=== PATIENT | male | born 1940 | race Caucasian/White ===

== ENCOUNTER → 2017-06-27 | Outpatient (CLI) | payer MEDICARE, BC ==
[~2017-06-27] MED LIST: AMLO-131 PO; ASPI1TAB57 PO; BYST10TA2 PO; CENTTAB20 PO; ECASA81 PO; HYDR-3580 PO; MULT-65 PO; OXYC1SOL5 PO; PRAV20 PO; PRAV20TA2 PO; RIVA10 PO; VITA10002 PO; [UNRECOGNIZED DRUG - CODE] PO
[2017-06-27 08:30] LABS: HEMATOCRIT 44.2 % (39.0-51.0); MEAN CELL VOLUME 98.1 FL (80.0-100.0); MEAN CORPUSCULAR HEMOGLOBIN 33.8 PG (27.0-34.0); MEAN CORPUSCULAR HGB CONC 34.5 % (32.0-36.0); PLATELET COUNT 379 TH/MM3 (150-450); RED CELL DISTRIBUTION WIDTH 13.9 % (11.6-17.2); REVIEW FLAG FINAL; WHITE BLOOD COUNT 12.8 TH/MM3 (4.0-11.0)
[2017-06-27 08:40] LABS: APTT (PATIENT) 25.3 SEC (24.3-30.1)
[2017-06-27 08:58] LABS: BICARBONATE 24.3 MEQ/L (21.0-32.0); POTASSIUM 3.9 MEQ/L (3.5-5.1)
[2017-06-27 09:28] LABS: BACTERIA, URINE OCC /hpf; BLOOD, URINE NEG (NEG); COMMENT (UR) CULT NOT INDICATED; CULTURE IF INDICATED CULT NOT INDICATED; GLUCOSE,URINE NEG (NEG); KETONE, URINE TRACE mg/dL (NEG); MUCUS URINE MANY /lpf (OCC); NITRITE,URINE NEG (NEG); SQUAMOUS EPITHELIAL CELL URINE 4 /hpf (0-5); TRANSITIONAL EPI CELLS, URINE 1 /hpf; URINE COLOR DARK-YELLOW (YELLW/STRAW)
--- NOTE | 2017-06-28 13:27 | EKG ---
Date Performed: 06/27/2017 Time Performed: 08:26:19 PTAGE: 76 years EKG: Reversed limb leads Precordial leads show Right Bundle Branch Block pattern Recommend repea t tracing with corrected limb lead placement PREVIOUS TRACING also showed right bundle branch block pattern, but the previous tracing showed the correct limb lead placement. PREVIOUS TRACIN12/30/2014 09.13 DOCTOR: Jose Beaulieu Interpretating Date/Time 06/28/2017 13:26:18
== END ==
LOC: CPRE 07:57
PROVIDERS: ATTEND Orthopaedic Surgery
DX: Z01.812 Encounter for preprocedural laboratory examination (principal); Z01.810 Encounter for preprocedural cardiovascular examination; M16.11 Unilateral primary osteoarthritis, right hip; M79.609 Pain in unspecified limb; I10 Essential (primary) hypertension; I45.10 Unspecified right bundle-branch block
CPT/HCPCS: 36415; 80048; 81001; 85027; 85610; 85730; 93005

== ENCOUNTER 2017-07-15 07:21 | Inpatient (IN) | payer MEDICARE, BC ==
[~2017-07-15] VITALS: Ht 175.3 cm; Wt 78.9 kg
[~2017-07-15 07:21] MED LIST changes: -CENTTAB20 PO; -ECASA81 PO; -HYDR-3580 PO; -OXYC1SOL5 PO; -PRAV20 PO; -RIVA10 PO; -[UNRECOGNIZED DRUG - CODE] PO
[2017-07-15] MEDS ORDERED: METOPROLOL TARTRATE 25 MG TAB PO PRN (08:00)
[2017-07-15] MEDS ORDERED: TRANEXAMIC ACID INJ 807 MG in SODIUM CHLORIDE 0.9% INJ 100 ML IV SCH ×2 (08:00→11:00)
[2017-07-15] MEDS ORDERED: CHLORHEXIDINE GLUCONATE 2 % 1 PACK (2 CLOTHS) TOPICAL PRN (08:00)
[2017-07-15] MEDS ORDERED: CHLORHEXIDINE GLUCONATE 4% SOLN 120 ML BTL TOPICAL SCH (08:00)
[2017-07-15] MEDS ORDERED: EXPAREL PERI-ARTICULAR INJECTION (TOTAL VOL. 60 ML) P-ARTICULR SCH ×2 (08:00)
[2017-07-15] MEDS ORDERED: POVIDONE IODINE 5% (ANTISEPSIS KIT) 4 APPLICATIONS EACH NARE PRN (08:00)
[2017-07-15] MEDS ORDERED: LACTATED RINGER'S 1000 ML IV PRN (08:00)
[2017-07-15] MEDS ORDERED: SODIUM CHLORID 0.9% 500 ML IV PRN (08:00)
[2017-07-15] MEDS ORDERED: ceFAZolin 2 GM PREMIX 50 ML IV SCH (08:00)
[2017-07-15] MEDS ORDERED: GENTAMICIN SULFATE 80 MG/2 ML VIAL ONE (09:11)
[2017-07-15] MEDS ORDERED: ACETAMINOPHEN/HYDROcodone 325 MG/7.5 MG TAB PO PRN (09:30)
[2017-07-15] MEDS ORDERED: TRANEXAMIC ACID INJ 0 MG in SODIUM CHLORIDE 0.9% INJ 100 ML IV SCH (09:30)
[2017-07-15] MEDS ORDERED: ONDANSETRON HCL 4 MG/2 ML VIAL IVP PRN (09:30)
[2017-07-15] MEDS ORDERED: MORPHINE SULFATE 2 MG/ML INJ IV PUSH PRN (09:30)
[2017-07-15] MEDS ORDERED: BISACODYL 10 MG SUPP RECTAL PRN (09:30)
[2017-07-15] MEDS ORDERED: Post-op Orders (for Pharmacy) XX ONE (09:30)
[2017-07-15] MEDS ORDERED: ECASA81 PO (09:32)
[2017-07-15] MEDS ORDERED: FAMOTIDINE 20 MG/2 ML VIAL ONE (09:53)
[2017-07-15] MEDS ORDERED: ACETAMINOPHEN 1000 MG/100 ML 100 ML IV ONE (09:54)
[2017-07-15] MEDS ORDERED: PROPOFOL 500 MG/50 ML INJ 50 ML ONE (09:54)
[2017-07-15] MEDS ORDERED: PHENYLEPH/NS 1000 MCG/10 ML SYR IV ONE (12:00)
[2017-07-15] MEDS ORDERED: ONDANSETRON HCL 4 MG/2 ML VIAL IV ONE (12:00)
[2017-07-15] MEDS ORDERED: PROPOFOL 200 MG/20 ML AMP IV ONE (12:00)
[2017-07-15] MEDS ORDERED: ePHEDrine/NS 25 MG/5 ML SYRINGE IV ONE (12:00)
[2017-07-15] MEDS ORDERED: LACTATED RINGER'S 1000 ML INJ 1,000 ML IV ONE (12:00)
[2017-07-15] MEDS: KETOROLAC TROMETHAMINE 30 MG/ML (IVP) VIAL IVP SCH ×3 (12:00→23:00)
[2017-07-15] MEDS ORDERED: DEXAMETHASONE SOD PHOS 4 MG/ML VIAL IV ONE (12:00)
[2017-07-15] MEDS ORDERED: DO NOT ADM ANY ANTICOAGULANT DRUGS PRN (12:14)
--- NOTE | 2017-07-15 12:15 | HHI.PR ---
Immediate Post Op Note Procedure Date: Jul 15, 2017 Pre Op Diagnosis: (1) Primary osteoarthritis of right hip Post Op Diagnosis: (1) Primary osteoarthritis of right hip Surgeon: Surendra Sanchez M.D. Laborer [employer] House(s): KRANTHI Allen Procedure: Right total hip arthroplasty using [place] prosthesis Findings: Severe osteoarthritis, right hip Complications: None Specimen(s) removed: None Estimated blood loss: 50 mL Anesthesia: Spinal, Local (bupivacaine liposomal) Drains: None IVF Patient to: PACU Patient Condition: Good Implant/Devices: SEE IMPLANT LOG (if applicable) Date/Time of Procedure: SEE SURGICAL CARE RECORD Cori Sanchez MD (Charles) Jul 15, 2017 12:15
[2017-07-15] MEDS: LACTATED RINGER'S 1000 ML INJ 1,000 ML IV SCH ×2 (12:21→22:30)
--- NOTE | 2017-07-15 12:49 | PD.OP ---
Operative Report Date of Surgery: Jul 15, 2017 Preoperative Diagnosis: (1) Primary osteoarthritis of right hip Postoperative Diagnosis: (1) Primary osteoarthritis of right hip Procedure: Right total hip arthroplasty using [place] prosthesis Anesthesia: Spinal supplemental local Surgeon: Surendra Sanchez M.D. Predatory Game Hunter(s): KRANTHI Allen Operation and Findings: Indications and Findings: This 76-year-old man has had progressively worsening hip pain over the past several months. He has limited ambulation because of his pain. He has stiffness in the hip. He has had significant worsening to the point that he is using a walker to ambulate. Treatment has included nonsteroidal anti-inflammatory agents, analgesics, ambulatory aids and exercise. Physical playing findings show limited range of motion of the hip with tenderness on motion and a significantly antalgic gait. X-rays show severe osteoarthritis in the hip with loss of articular cartilage to bone on bone with eburnation and large osteophytes. Operative findings showed severe osteoarthritis in the right hip with loss of articular cartilage to bone on bone, a deformed femoral head, large osteophytes and eburnation. The prosthesis used was a [place] prosthesis. The acetabulum was a Tritanium cluster cup size 56 mm outer diameter. A single dome screw was used. The liner was a 36 mm inner diameter, 0 liner of X3 polyethylene. The femoral component was an Accolade 2 size 6 x 127. The femoral head was a Biolox delta 36 mm outer diameter with a +0 neck length. The patient was brought to the clean air operating suite and a spinal anesthetic was administered. The patient was then positioned into a lateral position with the right hip up on a Ribbit lateral positioner. The hip and lower extremity were then prepped with alcohol, Hibiclens and ChloraPrep and draped in the usual manner with the hip draped free. Patient received prophylactic antibiotics preoperatively. The patient also received tranexamic acid preoperatively. An appropriate timeout procedure was carried out. An incision was then made from the midportion of the greater trochanter proximally and posteriorly paralleling the fibers of the gluteus helena. The incision was deepened through subcutaneous tissues down to the fascia leno and gluteus fascia. The gluteus fascia was then split longitudinally in line with its fibers up to the upper portion of the fascia leno. With wound towels in place, the Charnley retractor was inserted. The sciatic nerve was identified and protected throughout the procedure. Dissection was then carried down to the interval between the gluteus minimus and the piriformis. A retractor was inserted. The piriformis and obturator conjoined tendon was released from the greater trochanter and reflected off the capsule. A capsulotomy was made longitudinally along the femoral neck to the base of the femoral neck and then curved distally along the posterior aspect of the greater trochanter. The hip was then internally rotated. Further release of the external rotators was carried out exposing the hip. The hip was then dislocated. The femoral neck was transected at the appropriate level using the oscillating saw placement of appropriate retractors. The femoral head was then removed. Preparation of the femur was initiated with a box osteotome followed by a curet to identify the medullary canal. Broaching was then initiated with the size 0 broach and went and 1 size increments up to size 6. The broach handle was removed. The femoral neck was then trimmed with a calcar planar. Attention was then directed to the acetabulum. Soft tissues were debrided from the acetabulum. Retractors were placed about the acetabulum. Reaming was then initiated with the 47 millimeter reamer and went in 1 mm increments up to the 56 millimeter diameter reamer. A trial reduction with the 56 millimeter trial prosthesis was carried out. When this was deemed to be appropriate, the trial prosthesis was removed. The acetabulum was then irrigated and cleaned. The actual prosthesis as noted above was then impacted into place and seated appropriately. Drill holes were then made and sounded. Appropriate sized screws were then inserted to stabilize the acetabulum further. The liner as noted above was then inserted into the acetabular shell and impacted into place. Osteophytes were trimmed from the acetabulum. Local anesthetic was then administered throughout the area of the acetabulum and anterior aspect of the femur. The trial neck was then placed on the broach for the above-noted prosthesis. The femoral head trial was placed onto the femoral neck with the external diameter of the head being 36 millimeters and the neck length being a + 0 millimeters. A trial reduction was then carried out. The stability, leg length and motion were excellent. There was no pistoning. The trial prosthesis was removed. The broach was removed. The femoral component was then impacted into the medullary canal of the femur after irrigation and suctioning. When this was appropriately seated a trial reduction was again carried out with the trial prosthesis. Again, there was no pistoning. The leg length was appropriate. The stability and motion were excellent. The trial prosthesis was then removed. After cleaning and drying the trunion of the femoral component, the above-noted femoral head was impacted onto the trunnion. The hip was then reduced. The stability and mobility were again checked along with leg lengths as noted above. The hip was then positioned appropriately and closure commenced after the remainder of the local anesthetic was injected throughout the hip. The external rotators and capsule were then repaired with #1 Vicryl interrupted transosseous sutures with a Krakw technique to reattach the external rotators and capsule to the posterior aspect of the greater trochanter. The capsule itself on the superior aspect was closed with #1 Vicryl interrupted [id number] sutures. The sciatic nerve was again inspected. The fascia leno and gluteus fascia were then repaired with #1 Vicryl interrupted [id number] sutures. The subcutaneous tissues were closed with 2-0 Vicryl interrupted simple sutures with buried knots. The skin was closed with a continuous subcuticular closure of 4-0 Monocryl. The wound was then approximated with Steri-Strips. A silver impregnated dressing was applied to the hip. A knee immobilizer was applied to the leg. The patient was then transferred from the operating room to the recovery room in satisfactory condition having tolerated the procedure well. Counts are correct. Specimens: None. Estimated blood loss: 25 mL Cori Sanchez MD (Charles) Jul 15, 2017 12:49
--- NOTE | 2017-07-15 12:52 | HHI.FF ---
Face to Face Verification Diagnosis: (1) Status post total hip replacement, right Physical Therapy Gait training Hip: Total hip, Protocol: Right, Posterior hip precautions, Progress to weight bearing Canvas Knee Splint: When in bed & 2 pillows btw thighs Right LE Weight Bearing: WB as tolerated Right LE Range of Motion: Active ROM Nursing Nursing: Dressing changes (to start on postoperative day 7.) Dressing Changes: Daily dressing change, Coverderm/Primapore Additional Instructions Removed Steri-Strips on postoperative day 14. I have seen patient Benjamin Chavez on 07/15/17. My clinical findings support the need for the requested home health care services because: Ltd mobility - disease progression Limited ability to care for self High risk of falls I certify that my clinical findings support that this patient is homebound because: Post-op weakness Unsteady gait/balance Unsafe to leave home unassisted Cori Sanchez MD (Charles) Jul 15, 2017 12:52
--- NOTE | 2017-07-15 13:35 | PD.CONS ---
[facility] Requested By Sendy Babb Reason for Consult Postoperative medical management of hypertension Primary Care Physician Non-Staff Diagnoses: History of Present Illness A very pleasant 76-year-old gentleman who has a history of hypertension and tobaccoism. He is normally healthy although he has been using a walker recently due to joint pain. He is now seen postoperatively in the PACU. He has no complaints. He is status post spinal anesthesia. No recent changes in his medications and he does see his primary care doctor in [place] regularly. She is now seen postoperatively with a blood pressure of 137/71, heart rate. He normally takes amlodipine and diastolic. Review of Systems Constitutional: DENIES: Diaphoretic episodes, Fatigue, Fever, Weight gain, Weight loss, Chills, Dizziness, Change in appetite, Night Sweats Endocrine: DENIES: Heat/cold intolerance, Polydipsia, Polyuria, Polyphagia Eyes: DENIES: Blurred vision, Diplopia, Eye inflammation, Eye pain, Vision loss , Photosensitivity, Double Vision Ears, nose, mouth, throat: DENIES: Tinnitus, Hearing loss, Vertigo, Nasal discharge, Oral lesions, Throat pain, Hoarseness, Ear Pain, Running Nose, Epistaxis, Sinus Pain, Toothache, Odynophagia Respiratory: DENIES: Apneas, Cough, Snoring, Wheezing, Hemoptysis, Sputum production, Shortness of breath Cardiovascular: DENIES: Chest pain, Palpitations, Syncope, Dyspnea on Exertion , PND, Lower Extremity Edema, Orthopnea, Claudication Gastrointestinal: DENIES: Abdominal pain, Black stools, Bloody stools, Constipation, Diarrhea, Nausea, Vomiting, Difficulty Swallowing, Anorexia Genitourinary: DENIES: Penile Discharge Musculoskeletal: COMPLAINS OF: Joint pain Integumentary: DENIES: Abnormal pigmentation, Nail changes, Pruritus, Rash Hematologic/lymphatic: DENIES: Bruising, Lymphadenopathy Immunologic/allergic: DENIES: Eczema, Urticaria Neurologic: COMPLAINS OF: Abnormal gait (secondary to arthritis), DENIES: Headache, Localized weakness, Paresthesias, Seizures, Speech Problems, Tremor, Poor Balance Except as stated in HPI: all other systems reviewed are Neg Past Family Social History Allergies: Coded Allergies: No Known Allergies (Verified Allergy, Unknown, 07/15/17) Past Medical History hypertension Hyperlipidemia Past Surgical History Right total knee replacement Reported Medications Reviewed in the EMR Active Ordered Medications Reviewed in the EMR Family History mother had hypertension Social History Beer daily, tobacco 1 pack a day Physical Exam Vital Signs Vital Signs Date Time Temp Pulse Resp B/P (MAP) Pulse Ox O2 Delivery O2 Flow Rate FiO2 07/15/17 07:55 98.7 85 20 137/71 (93) 99 Physical Exam GENERAL: This is a well-nourished, well-developed patient, in no apparent distress. SKIN: No rashes, ecchymoses or lesions. Cool and dry. HEAD: Atraumatic. Normocephalic. No temporal or scalp tenderness. EYES: Pupils equal round and reactive. Extraocular motions intact. No scleral icterus. No injection or drainage. ENT: Nose without bleeding, purulent drainage or septal hematoma. Throat without erythema, tonsillar hypertrophy or exudate. Uvula midline. Airway patent. NECK: Trachea midline. No JVD or lymphadenopathy. Supple, nontender, no meningeal signs. CARDIOVASCULAR: Regular rate and rhythm without murmurs, gallops, or rubs. RESPIRATORY: Clear to auscultation. Breath sounds equal bilaterally. No wheezes , rales, or rhonchi. GASTROINTESTINAL: Abdomen soft, non-tender, nondistended. No hepato-splenomegaly , or palpable masses. No guarding. MUSCULOSKELETAL: Extremities without clubbing, cyanosis, or edema. No joint tenderness, effusion, or edema noted. No calf tenderness. Negative Homans sign bilaterally. NEUROLOGICAL: Awake and alert. Cranial nerves II through XII intact. Motor and sensory grossly within normal limits. Five out of 5 muscle strength in all muscle groups. Normal speech. Course patient seen in PACU postoperatively Assessment and Plan Problem List: (1) HTN (hypertension) ICD Code: I10 - HTN (hypertension) Status: Chronic Plan: patient will continue with amlodipine and the systolic He takes aspirin be held (2) HLD (hyperlipidemia) ICD Code: E78.5 - HLD (hyperlipidemia) Status: Chronic Plan: Continue statin (3) Primary osteoarthritis of right hip ICD Code: M16.11 - Unilateral primary osteoarthritis, right hip Plan: Postop day 0 status post right total hip arthroplasty, continue management as per orthopedic services Assessment and Plan Plan of care to be determined by this hospital course Hospitalist team to follow along with you Consult appreciated Code Status full code Discussed Condition With Patient Cira Ribera MD Jul 15, 2017 13:35
--- NOTE | 2017-07-15 13:37 | RADRPT ---
EXAM DATE/TIME: 07/15/2017 13:15 [facility] COMPARISON: No previous studies available for comparison. INDICATIONS : Post-op right hip arthroplasty. MEDICAL HISTORY : None. SURGICAL HISTORY : None. ENCOUNTER: Initial ACUITY: 1 day PAIN SCORE: Non-responsive. LOCATION: Right hip FINDINGS: The patient is status post a total hip arthroplasty with a bipolar prosthesis. Prosthesis is well-sea fercho. Alignment is anatomic. A fracture is not appreciated. CONCLUSION: Anatomic alignment. Gurjit Abbott MD FACR on July 15, 2017 at 13:36 Board Certified Radiologist. This report was verified electronically.
[2017-07-15 16:00] VITALS: BP 120/57; PULSE 80; RESP 18; TEMP 96; O2SAT 95
[2017-07-15] MEDS ORDERED: ZOLPIDEM TARTRATE 5 MG TAB PO PRN (21:00)
[2017-07-15] MEDS: PRAVASTATIN SOD 20 MG TAB PO SCH (21:49)
[2017-07-15] MEDS: ACETAMINOPHEN/HYDROcodone 325 MG/7.5 MG TAB PO PRN (22:34)
[2017-07-15 23:05] VITALS: BP 129/58; PULSE 89; RESP 18; TEMP 96.5; O2SAT 99
[2017-07-16 01:05] VITALS: BP 118/56; PULSE 86; RESP 16; TEMP 97; O2SAT 95
[2017-07-16] MEDS: KETOROLAC TROMETHAMINE 30 MG/ML (IVP) VIAL IVP SCH ×4 (04:59→22:14)
[2017-07-16 05:01] VITALS: BP 136/65; PULSE 83; RESP 18; TEMP 98.2; O2SAT 95
[2017-07-16 07:32] LABS: HEMATOCRIT 16.1 % (39.0-51.0); HEMOGLOBIN 5.5 GM/DL (13.0-17.0)
--- NOTE | 2017-07-16 07:52 | PD.ORT.PN ---
Subjective Post Op Day #: 1 Subjective Remarks He is doing well. He has minimal complaints related to the hip. He only has pain when he does a straight leg raise and abducts and adducts it. He has been doing some walking. He has no vertigo or other significant symptoms of anemia. He still is concerned about going home by himself since he lives alone. Distance Walked 32 feet with PT. Objective Vitals Vital Signs Date Time Temp Pulse Resp B/P (MAP) Pulse Ox O2 Delivery O2 Flow Rate FiO2 07/16/17 05:01 98.2 83 18 136/65 (88) 95 07/16/17 01:05 97.0 86 16 118/56 (76) 95 07/15/17 23:05 96.5 89 18 129/58 (81) 99 07/15/17 16:00 96.0 80 18 120/57 (78) 95 07/15/17 15:15 97.8 74 18 111/56 (74) 97 Nasal Cannula 2 07/15/17 14:30 76 18 128/56 (80) 99 Nasal Cannula 2 07/15/17 13:30 78 18 117/58 (77) 96 Nasal Cannula 2 07/15/17 13:15 77 18 113/56 (75) 92 Nasal Cannula 2 07/15/17 13:00 82 18 111/59 (76) 94 Nasal Cannula 2 07/15/17 12:45 80 18 114/58 (76) 94 Nasal Cannula 2 07/15/17 12:30 80 18 111/59 (76) 95 Nasal Cannula 2 07/15/17 12:21 97.9 82 18 107/54 (71) 97 Nasal Cannula 2 07/15/17 07:55 98.7 85 20 137/71 (93) 99 I/O 07/15/17 07/15/17 07/15/17 07/16/17 07/16/17 07/16/17 07:00 15:00 23:00 07:00 15:00 23:00 Intake Total 1500 ml 631 ml Output Total 50 ml 650 ml Balance 1450 ml 631 ml -650 ml Intake IV Total 631 ml Other 1500 ml Output Urine Total 650 ml Estimated Blood Loss 50 ml Result Diagram: 07/16/17 0555 Imaging X-rays show good position and alignment of the prosthesis. Last 72 hours Impressions Hip X-Ray 07/15/17 0000 Signed Impressions: Service Date/Time: Saturday, July 15, 2017 13:15 - CONCLUSION: Anatomic alignment. Gurjit Abbott MD FACR Objective Remarks He is resting comfortably, supine in bed. The dressing is dry and intact. There is no swelling about the hip. The neurovascular status is intact. He is able to easily straight leg raise and abduction abduct the lower extremity above the bed. There is no pallor. The nailbeds are pink. The conjunctiva are pink. Assessment & Plan Ortho Post Op Day #: 1 Problem List: (1) Status post total hip replacement, right ICD Codes: Z96.641 - Presence of right artificial hip joint Plan: Continue postop care and PT. Repeat hemoglobin and hematocrit. Assessment and Plan Condition: Good. Orthopedically stable. DVT prophylaxis: TEDs, aspirin, sequentials. Discharge plans: Home with home health care versus rehabilitation in a intermediate facility. An appointment was scheduled through the office. Prescriptions: [place] 7.5/325. Further evaluation of his hemoglobin and hematocrit will be done. It does not appear clinically that the reported hemoglobin and hematocrit is accurate, based upon his physical findings. Cori Sanchez MD (Charles) Jul 16, 2017 07:52
[2017-07-16 08:00] VITALS: BP 143/70; PULSE 80; RESP 18; TEMP 96.7; O2SAT 93
[2017-07-16] MEDS: CYANOCOBALAMIN 1,000 MCG TAB PO SCH (08:03)
[2017-07-16] MEDS: ATORVASTATIN 20 MG TAB PO SCH (08:03)
[2017-07-16] MEDS: MULTIVITAMIN TAB PO SCH (08:03)
[2017-07-16] MEDS: NEBIVOLOL 10 MG TAB PO SCH (08:06)
[2017-07-16] MEDS ORDERED: HYDR-3580 PO (08:34)
[2017-07-16] MEDS: ACETAMINOPHEN/HYDROcodone 325 MG/7.5 MG TAB PO PRN (08:45)
[2017-07-16] MEDS ORDERED: NON-FORMULARY DRUG (Amlodipine-Atorvastatin 1 TAB) PO SCH (09:00)
[2017-07-16 09:06] LABS: HEMOGLOBIN 6.1 GM/DL (13.0-17.0)
[2017-07-16] MEDS: LACTATED RINGER'S 1000 ML INJ 1,000 ML IV SCH ×2 (11:00→23:30)
[2017-07-16] MEDS: ASPIRIN EC 81 MG TABEC PO SCH ×2 (11:16→20:24)
--- NOTE | 2017-07-16 11:36 | HHI.PR ---
Subjective Remarks patient is seen in room out of bed to chair. He is pale and complaining of some dizziness when he moves. Hemoglobin has been low at 6.1 this morning. ( This is repeated hemoglobin) Postop day 1 status post right hip arthroplasty Objective Vitals Vital Signs Date Time Temp Pulse Resp B/P (MAP) Pulse Ox O2 Delivery O2 Flow Rate FiO2 07/16/17 09:45 16 07/16/17 08:00 96.7 80 18 143/70 (94) 93 07/16/17 05:01 98.2 83 18 136/65 (88) 95 07/16/17 01:05 97.0 86 16 118/56 (76) 95 07/15/17 23:05 96.5 89 18 129/58 (81) 99 07/15/17 16:00 96.0 80 18 120/57 (78) 95 07/15/17 15:15 97.8 74 18 111/56 (74) 97 Nasal Cannula 2 07/15/17 14:30 76 18 128/56 (80) 99 Nasal Cannula 2 07/15/17 13:30 78 18 117/58 (77) 96 Nasal Cannula 2 07/15/17 13:15 77 18 113/56 (75) 92 Nasal Cannula 2 07/15/17 13:00 82 18 111/59 (76) 94 Nasal Cannula 2 07/15/17 12:45 80 18 114/58 (76) 94 Nasal Cannula 2 07/15/17 12:30 80 18 111/59 (76) 95 Nasal Cannula 2 07/15/17 12:21 97.9 82 18 107/54 (71) 97 Nasal Cannula 2 I/O 07/15/17 07/15/17 07/15/17 07/16/17 07/16/17 07/16/17 07:00 15:00 23:00 07:00 15:00 23:00 Intake Total 1500 ml 631 ml Output Total 50 ml 650 ml Balance 1450 ml 631 ml -650 ml Intake IV Total 631 ml Other 1500 ml Output Urine Total 650 ml Estimated Blood Loss 50 ml Result Diagram: 07/16/17 0845 Objective Remarks GENERAL: This is a well-nourished, well-developed patient, pale and complaining of dizziness CARDIOVASCULAR: Regular rate and rhythm without murmurs, gallops, or rubs. RESPIRATORY: Clear to auscultation. Breath sounds equal bilaterally. No wheezes , rales, or rhonchi. GASTROINTESTINAL: Abdomen soft, non-tender, nondistended. Normal active bowel sounds MUSCULOSKELETAL: Extremities without clubbing, cyanosis, or edema. NEURO: Alert & Oriented x4 to person, place, time, situation. Moves all ext x4 Procedures Right total hip arthroplasty A/P Problem List: (1) HTN (hypertension) ICD Code: I10 - HTN (hypertension) Status: Chronic Plan: patient will continue with amlodipine and the systolic He takes aspirin be held (2) HLD (hyperlipidemia) ICD Code: E78.5 - HLD (hyperlipidemia) Status: Chronic Plan: Continue statin (3) Primary osteoarthritis of right hip ICD Code: M16.11 - Unilateral primary osteoarthritis, right hip Plan: Postop day 1 status post right total hip arthroplasty, continue management as per orthopedic services (4) Postoperative anemia ICD Code: D64.9 - Anemia, unspecified Plan: With some associated hypo-tension and dizziness and fatigue. We'll transfuse patient in follow in Cira Easley MD Jul 16, 2017 11:36
[2017-07-16] MEDS ORDERED: ACETAMINOPHEN 325 MG TAB PO PRN (11:45)
[2017-07-16] MEDS ORDERED: diphenhydrAMINE HCL 25 MG CAP PO PRN (11:45)
[2017-07-16] MEDS ORDERED: SODIUM CHLOR 0.9% 250 ML INJ 250 ML IV ONE (11:45)
[2017-07-16] MEDS ORDERED: FUROSEMIDE 20 MG/2 ML VIAL IV PUSH ONE (12:00)
[2017-07-16 16:00] VITALS: BP 120/70; PULSE 81; RESP 18; TEMP 96.6; O2SAT 94
[2017-07-16 18:04] LABS: BICARBONATE 24.1 MEQ/L (21.0-32.0); CALCIUM 8.2 MG/DL (8.5-10.1); CREATININE 0.9 MG/DL (0.60-1.30)
[2017-07-16 20:22] VITALS: BP 128/67; PULSE 79; RESP 18; TEMP 97.1; O2SAT 95
[2017-07-16] MEDS: DOCUSATE SODIUM 100 MG CAP PO SCH (20:24)
[2017-07-16] MEDS: MAGNESIUM HYDROXIDE SUSP 30 ML CUP PO PRN (20:24)
[2017-07-16] MEDS: PRAVASTATIN SOD 20 MG TAB PO SCH (20:24)
[2017-07-17 00:30] VITALS: BP 126/64; PULSE 78; RESP 18; TEMP 96.9; O2SAT 96
[2017-07-17 04:05] VITALS: BP 139/69; PULSE 82; RESP 18; TEMP 96.6; O2SAT 96
[2017-07-17] MEDS: KETOROLAC TROMETHAMINE 30 MG/ML (IVP) VIAL IVP SCH (04:11)
[2017-07-17 06:18] LABS: MEAN CELL VOLUME 99.2 FL (80.0-100.0); MEAN CORPUSCULAR HEMOGLOBIN 33.9 PG (27.0-34.0); MEAN CORPUSCULAR HGB CONC 34.2 % (32.0-36.0); MEAN PLATELET VOLUME 7.2 FL (7.0-11.0); PLATELET COUNT 623 TH/MM3 (150-450); RED BLOOD COUNT 1.94 MIL/MM3 (4.50-5.90); RED CELL DISTRIBUTION WIDTH 14.8 % (11.6-17.2); WHITE BLOOD COUNT 12.3 TH/MM3 (4.0-11.0)
[2017-07-17 06:25] LABS: HEMATOCRIT 19.2 % (39.0-51.0); HEMOGLOBIN 6.6 GM/DL (13.0-17.0)
[2017-07-17] MEDS ORDERED: SODIUM CHLOR 0.9% 250 ML INJ 250 ML IV ONE (06:45)
[2017-07-17] MEDS ORDERED: FUROSEMIDE 20 MG/2 ML VIAL IV PUSH ONE (06:45)
[2017-07-17 08:00] VITALS: BP 121/68; PULSE 78; RESP 18; TEMP 96.9; O2SAT 94
--- NOTE | 2017-07-17 08:15 | PD.ORT.PN ---
Subjective Post Op Day #: 2 Subjective Remarks He is still doing well. He has minimal complaints related to the hip. He has minimal pain. He has been doing some walking. He denies vertigo or other significant symptoms of anemia. He still is concerned about going home by himself since he lives alone. He hit his right wrist on the corner of the wall when plugging in his cellular phone. Distance Walked 25 feet, then 120 feet in the morning; 135 feet in the afternoon. Objective Vitals Vital Signs Date Time Temp Pulse Resp B/P (MAP) Pulse Ox O2 Delivery O2 Flow Rate FiO2 07/17/17 04:05 96.6 82 18 139/69 (92) 96 07/17/17 00:30 96.9 78 18 126/64 (84) 96 07/16/17 20:22 97.1 79 18 128/67 (87) 95 07/16/17 16:00 96.6 81 18 120/70 (87) 94 07/16/17 12:16 16 07/16/17 09:45 16 I/O 07/16/17 07/16/17 07/16/17 07/17/17 07/17/17 07/17/17 07:00 15:00 23:00 07:00 15:00 23:00 Intake Total 600 ml 240 ml 240 ml Output Total 650 ml 900 ml Balance -650 ml 600 ml 240 ml -660 ml Intake Oral 600 ml 240 ml 240 ml Output Urine Total 650 ml 900 ml # Voids 3 2 # Bowel Movements 0 0 0 Result Diagram: 07/17/17 0542 07/16/17 1630 Imaging X-rays show good position and alignment of the prosthesis. Last 72 hours Impressions Hip X-Ray 07/15/17 0000 Signed Impressions: Service Date/Time: Saturday, July 15, 2017 13:15 - CONCLUSION: Anatomic alignment. Gurjit Abbott MD FACR Objective Remarks He is out of bed, sitting on the couch, shaving. The dressing is dry and intact. There is no edema, induration or ecchymosis about the hip. The neurovascular status is intact. He has fresh abrasion on his ulnar styloid on the right. There is no pallor. The nailbeds are pink. The conjunctiva are pink. Assessment & Plan Ortho Post Op Day #: 2 Problem List: (1) Status post total hip replacement, right ICD Codes: Z96.641 - Presence of right artificial hip joint Plan: Continue postop care and PT. Repeat hemoglobin and hematocrit. (2) Primary osteoarthritis of right hip ICD Codes: M16.11 - Unilateral primary osteoarthritis, right hip Status: Resolved Assessment and Plan Condition: Good. Orthopedically stable. DVT prophylaxis: TEDs, aspirin, sequentials. Discharge plans: He prefers to go to a nursing facility for rehabilitation because he lives at home. He feels that he needs to be more secure in his ambulation and ADL. An appointment was scheduled through the office. Prescriptions: [place] 7.5/325. It still does not appear clinically that the reported hemoglobin and hematocrit is accurate, based upon his physical findings. His blood loss during surgery was minimal. The reason for the discrepancy between his current hemoglobin and his preoperative hemoglobin is still unclear. It does not appear that there is blood loss from surgery, based upon the findings at surgery and his current findings clinically. Cori Sanchez MD (Charles) Jul 17, 2017 08:15
[2017-07-17] MEDS: MULTIVITAMIN TAB PO SCH (09:04)
[2017-07-17] MEDS: ATORVASTATIN 20 MG TAB PO SCH (09:04)
[2017-07-17] MEDS: ASPIRIN EC 81 MG TABEC PO SCH ×2 (09:04→19:58)
[2017-07-17] MEDS: NEBIVOLOL 10 MG TAB PO SCH (09:04)
[2017-07-17] MEDS: DOCUSATE SODIUM 100 MG CAP PO SCH ×2 (09:04→19:58)
[2017-07-17] MEDS: CYANOCOBALAMIN 1,000 MCG TAB PO SCH (09:04)
[2017-07-17] MEDS: traMADol HCL 50 MG TAB PO PRN ×3 (09:14→23:45)
--- NOTE | 2017-07-17 11:34 | HHI.PR ---
Subjective Remarks Patient seen in follow-up for hypertension and anemia. Hemoglobin still 6.6. Patient today does not complain of dizziness or lightheadedness. It is never had any problems with anemia in the past. Colonoscopy was done 2 years ago without abnormal findings per patient. He has not seen any bleeding from the stool, urine or epistaxis. Minimal blood loss of surgery. I did advise the patient to follow-up with his primary care doctor with possible referral to hematology for further evaluation and his hemoglobin continues to remain low. At This point patient is asymptomatic and discharge planning continues. Objective Vitals Vital Signs Date Time Temp Pulse Resp B/P (MAP) Pulse Ox O2 Delivery O2 Flow Rate FiO2 07/17/17 08:00 96.9 78 18 121/68 (85) 94 07/17/17 04:05 96.6 82 18 139/69 (92) 96 07/17/17 00:30 96.9 78 18 126/64 (84) 96 07/16/17 20:22 97.1 79 18 128/67 (87) 95 07/16/17 16:00 96.6 81 18 120/70 (87) 94 07/16/17 12:16 16 I/O 07/16/17 07/16/17 07/16/17 07/17/17 07/17/17 07/17/17 07:00 15:00 23:00 07:00 15:00 23:00 Intake Total 600 ml 240 ml 240 ml Output Total 650 ml 900 ml Balance -650 ml 600 ml 240 ml -660 ml Intake Oral 600 ml 240 ml 240 ml Output Urine Total 650 ml 900 ml # Voids 3 2 # Bowel Movements 0 0 0 Result Diagram: 07/17/17 0542 07/16/17 1630 Objective Remarks GENERAL: This is a well-nourished, well-developed patient, pale and complaining of dizziness CARDIOVASCULAR: Regular rate and rhythm without murmurs, gallops, or rubs. RESPIRATORY: Clear to auscultation. Breath sounds equal bilaterally. No wheezes , rales, or rhonchi. GASTROINTESTINAL: Abdomen soft, non-tender, nondistended. Normal active bowel sounds MUSCULOSKELETAL: Extremities without clubbing, cyanosis, or edema. NEURO: Alert & Oriented x4 to person, place, time, situation. Moves all ext x4 Procedures Right total hip arthroplasty A/P Problem List: (1) HTN (hypertension) ICD Code: I10 - HTN (hypertension) Status: Chronic Plan: patient will continue with amlodipine and bystolic Controlled (2) HLD (hyperlipidemia) ICD Code: E78.5 - HLD (hyperlipidemia) Status: Chronic Plan: Continue statin (3) Primary osteoarthritis of right hip ICD Code: M16.11 - Unilateral primary osteoarthritis, right hip Status: Resolved Plan: Postop day 2 status post right total hip arthroplasty, continue management as per orthopedic services (4) Postoperative anemia ICD Code: D64.9 - Anemia, unspecified Plan: Hemoglobin 5.5, 6.1 and now 6.6 Etiology unclear, patient reports no previous episodes of anemia No active bleeding and Patient is asymptomatic He has refused further inpatient evaluation (possible peripheral smear and bone marrow biopsy) patient may pursue these as an outpatient. Would recommend repeat hemoglobin and primary care follow-up within 7-10 days are earlier if symptoms area this is discussed with the patient Discharge Planning hospitalist clear for discharge when cleared by primary service Cira Ribera MD Jul 17, 2017 11:33
[2017-07-17 12:00] VITALS: BP 133/65; PULSE 78; RESP 18; TEMP 96.5; O2SAT 94
[2017-07-17] MEDS: LACTATED RINGER'S 1000 ML INJ 1,000 ML IV SCH ×2 (12:00→19:55)
[2017-07-17 16:00] VITALS: BP 108/66; PULSE 76; RESP 16; TEMP 97.3; O2SAT 94
[2017-07-17] MEDS: PRAVASTATIN SOD 20 MG TAB PO SCH (19:58)
[2017-07-17 20:00] VITALS: BP 138/63; PULSE 85; RESP 18; TEMP 96.6; O2SAT 95
[2017-07-18] VITALS: BP 135/69; PULSE 81; RESP 18; TEMP 98.3; O2SAT 95
[2017-07-18 04:00] VITALS: BP 118/59; PULSE 79; RESP 18; TEMP 98.4; O2SAT 97
--- NOTE | 2017-07-18 06:53 | PD.ORT.PN ---
Subjective Post Op Day #: 3 Subjective Remarks He is still doing well with ambulation and therapy. He has minimal complaints related to the hip. He has minimal pain He denies vertigo or other significant symptoms of anemia. He still is concerned about going home by himself since he lives alone. Distance Walked 160 feet with physical therapy. Objective Vitals Vital Signs Date Time Temp Pulse Resp B/P (MAP) Pulse Ox O2 Delivery O2 Flow Rate FiO2 07/18/17 04:00 98.4 79 18 118/59 (78) 97 07/18/17 00:00 98.3 81 18 135/69 (91) 95 07/17/17 20:00 96.6 85 18 138/63 (88) 95 07/17/17 16:00 97.3 76 16 108/66 (80) 94 07/17/17 12:00 96.5 78 18 133/65 (87) 94 07/17/17 08:00 96.9 78 18 121/68 (85) 94 I/O 07/17/17 07/17/17 07/17/17 07/18/17 07/18/17 07/18/17 07:00 15:00 23:00 07:00 15:00 23:00 Intake Total 240 ml 480 ml 480 ml 240 ml Output Total 900 ml 2 ml Balance -660 ml 480 ml 478 ml 240 ml Intake Oral 240 ml 480 ml 480 ml 240 ml Output Urine Total 900 ml 2 ml # Voids 3 2 # Bowel Movements 0 2 1 0 Result Diagram: 07/17/17 0542 07/16/17 1630 Imaging X-rays show good position and alignment of the prosthesis. Last 72 hours Impressions Hip X-Ray 07/15/17 0000 Signed Impressions: Service Date/Time: Saturday, July 15, 2017 13:15 - CONCLUSION: Anatomic alignment. Gurjit Abbott MD FACR Objective Remarks He is resting comfortably, supine in bed. The dressing is dry and intact. There is no edema, induration or ecchymosis about the hip. The neurovascular status is intact. The abrasion on his right wrist is well covered. There is no pallor. The nailbeds are pink. The conjunctiva are pink. Assessment & Plan Ortho Post Op Day #: 3 Problem List: (1) Status post total hip replacement, right ICD Codes: Z96.641 - Presence of right artificial hip joint Plan: Continue postop care and PT. Repeat hemoglobin and hematocrit. (2) Primary osteoarthritis of right hip ICD Codes: M16.11 - Unilateral primary osteoarthritis, right hip Status: Resolved Assessment and Plan Condition: Good. Orthopedically stable. DVT prophylaxis: TEDs, aspirin, sequentials. Discharge plans: He prefers to go to a nursing facility for rehabilitation because he lives at home. He feels that he needs to be more secure in his ambulation and ADL. An appointment was scheduled through the office. Prescriptions: [place] 7.5/325. It still does not appear clinically that the reported hemoglobin and hematocrit is accurate, based upon his physical findings. His blood loss during surgery was minimal. The reason for the discrepancy between his current hemoglobin and his preoperative hemoglobin is still unclear. It does not appear that there is blood loss from surgery, based upon the findings at surgery and his current findings clinically. Cori Sanchez MD ([place]) Jul 18, 2017 06:53
--- NOTE | 2017-07-18 07:06 | HHI.DS ---
Discharge Summary Admission Date Jul 15, 2017 at 07:21 Discharge Date: Jul 18, 2017 Admitting Diagnosis Primary osteoarthritis, right hip. Diagnosis: (1) Status post total hip replacement, right ICD Codes: Z96.641 - Presence of right artificial hip joint (2) Primary osteoarthritis of right hip Diagnosis: Principal ICD Codes: M16.11 - Unilateral primary osteoarthritis, right hip Status: Resolved Procedures Right total hip arthroplasty using Feliz prosthesis on 07/15/2017. Brief History This is a 76 year old male patient has had progressive increased pain in his right hip that has been nonresponsive to conservative measures as detailed in the admitting history and physical examination. His physical findings showed limited range of motion in the hip with pain on motion. He had an antalgic gait. Radiographic findings were consistent with severe osteoarthritis in the right hip greater than left with eburnation, flattening of the femoral head, osteophytes and degenerative cysts. CBC/BMP: 07/17/17 0542 07/16/17 1630 Significant Findings Laboratory Tests Test 07/16/17 05:55 07/16/17 08:45 07/16/17 16:30 07/17/17 05:42 Hemoglobin 5.5 GM/DL (13.0-17.0) 6.1 GM/DL (13.0-17.0) 6.6 GM/DL (13.0-17.0) Hematocrit 16.1 % (39.0-51.0) 18.0 % (39.0-51.0) 19.2 % (39.0-51.0) Blood Urea Nitrogen 21 MG/DL (7-18) Calcium Level 8.2 MG/DL (8.5-10.1) Estimat Glomerular Filtration Rate 82 ML/MIN (>89) White Blood Count 12.3 TH/MM3 (4.0-11.0) Red Blood Count 1.94 MIL/MM3 (4.50-5.90) Platelet Count 623 TH/MM3 (150-450) Imaging X-rays of the hip postoperatively showed good position and alignment of the prosthesis. PE at Discharge He is resting comfortably, supine in bed. The dressing is dry and intact. There is no edema, induration or ecchymosis about the hip. The neurovascular status is intact. The abrasion on his right wrist is well covered. There is no pallor. The nailbeds are pink. The conjunctiva are pink. Transfer Summary He is being sent to a assisted facility for rehabilitation. He will be returning home with home health care afterwards. Equipment was arranged prior to admission. He should have his dressing left in place until postoperative day 7 unless it is disrupted. Daily dressing changes should begin after postoperative day 7. His Steri-Strips should remain in place until postoperative day 14 at which time they should be removed. Aspirin 81 mg twice a day should be continued for 30 days for DVT prophylaxis. Hospital Course The patient was admitted as noted on 07/15/2017. He had the above-noted right total hip arthroplasty carried out and tolerated it well. In the recovery room he was started on sequentials and JOSE stockings for DVT prophylaxis with the addition of aspirin on the first postoperative day. He started on Ancef as a prophylactic antibiotic preoperatively according to protocol and was continued with the same medication for day afterwards according to protocol. He started physical therapy day of surgery. He progressively improved with his physical therapy. He was ultimately able to walk in excess of 100 feet as noted in the therapy notes. He did not have problems with vertigo or symptoms of anemia even though he had a hemoglobin in the 6 g range. He apparently declined transfusion. He has a discharge appointment scheduled from the office. Pt Condition on Discharge: Good Discharge Disposition: Discharge to SNF Discharge Instructions Diet Instructions: As Tolerated, No Restrictions Activities You Can Perform: Full Weight Bearing, Shower Only-No Bath Activities to Avoid: Lifting/Bending, Strenuous Activity, Bathing, Driving Follow up Referrals: Orthopedics with Cori Sanchez MD ([facility]) New Medications: Aspirin (Aspirin DR) 81 Mg Tabdr 81 MG PO BID for Prevent Blood Clot for 30 Days, #60 TAB Hydrocodone/Acetaminophen (Hydrocodone-Acetamin 7.5-325) 7.5 Mg-325 Mg Tablet 1 TAB PO Q4H PRN for PAIN SCALE 1 TO 10, #50 TAB Continued Medications: Amlodipine-Atorvastatin (Amlodipine-Atorvastatin) 10-20 Mg Tab 1 TAB PO DAILY for Blood Pressure Management, #30 TAB 0 Refills Cyanocobalamin (Vitamin B-12) 1,000 Mcg Tab 1000 MCG PO DAILY for Nutritional Supplement, #1 BOTTLE 0 Refills Multiple Vitamin (Multi-Vitamin Daily) 1 Tab Tab 1 TAB PO DAILY for Nutritional Supplement, TAB 0 Refills Nebivolol (Bystolic) 10 Mg Tab 10 MG PO DAILY for Blood Pressure Management, #30 TAB 0 Refills Pravastatin (Pravastatin) 20 Mg Tab 20 MG PO HS for Cholesterol Management, #30 TAB 0 Refills Discontinued Medications: Aspirin (Aspirin 81) 81 Mg Tabdr 81 MG PO DAILY, TAB 0 Refills Cori Sanchez MD ([place]) Jul 18, 2017 07:06
[2017-07-18 08:25] VITALS: BP 142/73; PULSE 82; RESP 16; TEMP 97.8; O2SAT 92
[2017-07-18] MEDS: DOCUSATE SODIUM 100 MG CAP PO SCH (08:28)
[2017-07-18] MEDS: ASPIRIN EC 81 MG TABEC PO SCH (08:28)
[2017-07-18] MEDS: NEBIVOLOL 10 MG TAB PO SCH (08:28)
[2017-07-18] MEDS: CYANOCOBALAMIN 1,000 MCG TAB PO SCH (08:28)
[2017-07-18] MEDS: MULTIVITAMIN TAB PO SCH (08:28)
[2017-07-18] MEDS: ATORVASTATIN 20 MG TAB PO SCH (08:28)
[2017-07-18] MEDS: traMADol HCL 50 MG TAB PO PRN (08:29)
[2017-07-18] MEDS: MAGNESIUM HYDROXIDE SUSP 30 ML CUP PO PRN (08:29)
[2017-07-18] MEDS: LACTATED RINGER'S 1000 ML INJ 1,000 ML IV SCH (08:34)
== END 2017-07-18 11:05 | DRG 470 ==
LOC: HSDI 07:21 → N06B 15:50 → N06A 07-16 16:26
PROVIDERS: ADMIT Orthopaedic Surgery; ATTEND Orthopaedic Surgery
PROC: 0SR904A Replacement of Right Hip Joint with Ceramic on Polyethylene Synthetic Substitute, Uncemented, Open Approach (ICD-10-PCS; principal; 2017-07-15 09:55)
DX: M16.11 Unilateral primary osteoarthritis, right hip (principal); D64.9 Anemia, unspecified; I10 Essential (primary) hypertension; E78.5 Hyperlipidemia, unspecified; S60.811A Abrasion of right wrist, initial encounter; R42 Dizziness and giddiness; W22.8XXA Striking against or struck by other objects, initial encounter; Y92.230 Patient room in hospital as the place of occurrence of the external cause; Y93.89 Activity, other specified; F17.210 Nicotine dependence, cigarettes, uncomplicated; Z96.651 Presence of right artificial knee joint
CPT/HCPCS: 73502; 80048; 85014; 85018; 85027; 86850; 86900; 86901; 86920; 94150; C1776; C9290; J0131; J0690; J1100; J1580; J1885; J2370; J2405; J7120